=== PATIENT | female | born 1995 ===

== ENCOUNTER 2020-03-17 00:10 | Inpatient (IN) | payer MEDICAID ==
[2020-03-17] MEDS ORDERED: Sodium Chloride 0.9% 2.5 ML Syringe FLUSH PRN (01:06)
[2020-03-17] MEDS ORDERED: Ondansetron 4 MG/2 ML SDV IVPUSH PRN (01:06)
[2020-03-17] MEDS ORDERED: Tranexamic Acid 1,000 MG in Sodium Chloride 0.9% 100 ML IV PRN (01:06)
[2020-03-17] MEDS ORDERED: Sodium Chloride 0.9% 10 ML SDV IV PRN (01:06)
[2020-03-17] MEDS ORDERED: Lidocaine 1% 50 ML MDV INJECT PRN (01:06)
[2020-03-17] MEDS ORDERED: Methylergonovine 0.2 MG/1 ML Amp IM PRN (01:06)
[2020-03-17] MEDS ORDERED: Carboprost Tromethamine 250 MCG/1 ML Amp IM PRN (01:06)
[2020-03-17] MEDS ORDERED: Water For Irrigation,Sterile 1,000 ML Container IRR PRN (01:06)
[2020-03-17] MEDS ORDERED: Nalbuphine 10 MG/1 ML Vial IVPUSH PRN (01:06)
[2020-03-17] MEDS ORDERED: Misoprostol 200 MCG Tab PO PRN (01:06)
[2020-03-17] MEDS ORDERED: Sodium Chloride 0.9% 10 ML Syringe FLUSH PRN (01:06)
[2020-03-17] MEDS ORDERED: Terbutaline 1 MG/ML SDV SUBCUT PRN (01:11)
[2020-03-17] MEDS ORDERED: Oxytocin/0.9 % Sodium Chloride 30 UNIT/500 ML BAG IV SCH ×3 (01:15→14:15)
[2020-03-17] MEDS: Misoprostol 25 MCG (1/4 of 100 MCG) Tab PO PRN ×4 (01:24→23:08)
[2020-03-17] MEDS: Misoprostol 25 MCG (1/4 of 100 MCG) Tab VAG PRN ×4 (01:24→23:08)
--- NOTE | 2020-03-17 02:51 | PCM.LDHP ---
L&D History of Present Illness - General Date of Service: 03/17/20 Admit Problem/Dx: Patient Status Order with Admit Dx/Problem 03/17/20 01:06 Patient Status [ADT] Routine Admission Diagnosis/Problem Admission Diagnosis/Problem Source of Information: Patient History Limitations: Reports: No Limitations - History of Present Illness Introduction:: 24yo at 40w6d GA here for elective IOL. care unremarkable. Denies Ctx, VB. or LOF. Good FM labs: A+; Abs screen neg, Rubella immune. RPR nonreactive, HBsAg neg, HIV neg - Related Data Allergies/Adverse Reactions: Allergies Allergy/AdvReac Type Severity Reaction Status Date / Time No Known Allergies Allergy Verified 03/17/20 01:03 Home Medications: Home Meds Ferrous Sulfate [Iron] 325 mg PO 03/17/20 [History] Pnv #30/Iron Carb&Aspg/Fa/Om3 [OB Complete with DHA Softgel] 03/17/20 [History] Past Medical History HEENT History: Reports: None Cardiovascular History: Reports: None Respiratory History: Reports: None Gastrointestinal History: Reports: None Genitourinary History: Reports: None TWINE WINDER History: Reports: Musculoskeletal History: Reports: None Neurological History: Reports: None Psychiatric History: Reports: None Endocrine/Metabolic History: Reports: None Hematologic History: Reports: None Immunologic History: Reports: None Oncologic (Cancer) History: Reports: None Dermatologic History: Reports: None - Infectious Disease History Infectious Disease History: Reports: Chicken Pox - Past Surgical History Head Surgeries/Procedures: Reports: None HEENT Surgical History: Reports: None Cardiovascular Surgical History: Reports: None GI Surgical History: Reports: None Female Surgical History: Reports: None Endocrine Surgical History: Reports: None Neurological Surgical History: Reports: None Musculoskeletal Surgical History: Reports: None Oncologic Surgical History: Reports: None Dermatological Surgical History: Reports: None Social & Family History - Family History HEENT: Reports: None Cardiac: Reports: None Respiratory: Reports: None GI: Reports: None : Reports: None Musculoskeletal: Reports: None Neurological: Reports: None Psychiatric: Reports: None Endocrine/Metabolic: Reports: Diabetes, type II Hematologic: Reports: None Immunologic: Reports: None Dermatologic: Reports: None Oncologic: Reports: Ovarian - Tobacco Use Tobacco Use Status *Q: Never Tobacco User Second Hand Smoke Exposure: No - Caffeine Use Caffeine Use: Reports: Coffee - Recreational Drug Use Recreational Drug Use: No H&P Review of Systems - Review of Systems: Review Of Systems: See Below General: Reports: No Symptoms HEENT: Reports: No Symptoms Pulmonary: Reports: No Symptoms Cardiovascular: Reports: No Symptoms Gastrointestinal: Reports: No Symptoms Genitourinary: Reports: No Symptoms Musculoskeletal: Reports: No Symptoms Skin: Reports: No Symptoms Psychiatric: Reports: No Symptoms Neurological: Reports: No Symptoms Hematologic/Lymphatic: Reports: No Symptoms Immunologic: Reports: No Symptoms L&D Exam - Exam Exam: See Below - Vital Signs Weight: 93.497 kg - OB Specific Contraction Intensity: Mild Movement: Active Heart Tones: Present Heart Rate (FHR) Variability: Moderate (6-25 bmp) Presentation: Vertex Estimated Weight: 7 - Cristobal Score Cristobal Score Cervix Position: Posterior Cristobal Score Consistency: Medium Cristobal Score Effacement: 51-70% Cristobal Score Dilation: 1-2 cm Cristobal Score 's Station: -1 ,0 Cristobal Score Total: 6 - Exam General: Alert, Oriented Lungs: Normal Respiratory Effort Cardiovascular: Regular Rate GI/Abdominal Exam: Soft, Non-Tender Genitourinary: Normal external exam Extremities: Normal Inspection Psychiatric: Alert, Normal Affect, Normal Mood - Patient Data Lab Results Last 24 hrs: Laboratory Results - last 24 hr 03/17/20 03/17/20 Range/Units 00:50 00:50 WBC 11.45 H (4.0-11.0) K/uL RBC 3.55 L (4.30-5.90) M/uL Hgb 10.4 L (12.0-16.0) g/dL Hct 32.4 L (36.0-46.0) % MCV 91.3 (80.0-98.0) fL MCH 29.3 (27.0-32.0) pg MCHC 32.1 (31.0-37.0) g/dL RDW Std Deviation 52.5 (28.0-62.0) fl RDW Coeff of Dave 16 H (11.0-15.0) % Plt Count 411 H (150-400) K/uL MPV 10.80 (7.40-12.00) fL Nucleated RBC % 0.0 /100WBC Nucleated RBCs # 0 K/uL Blood Type A POSITIVE Antibody Screen NEGATIVE Result Diagrams: 03/17/20 00:50 - Problem List (1) Term SNOMED Code(s): 80128431 ICD Code: Z34.90 - ENCNTR FOR SUPRVSN OF NORMAL , UNSP, UNSP TRIMESTER Status: Acute Current Visit: Yes (2) Elective induction of labor planned SNOMED Code(s): 662386329 ICD Code: RWQ3301 - Status: Acute Current Visit: Yes Problem List Initiated/Reviewed/Updated: Yes Orders Last 24hrs: Active Orders 24 hr Category Date Time Status Patient Status [ADT] Routine ADT 03/17/20 01:06 Active Bedrest Bathroom Privileges [RC] ASDIRECTED Care 03/17/20 01:11 Active May Shower [RC] ASDIRECTED Care 03/17/20 01:06 Active Notify Provider [RC] PRN Care 03/17/20 01:06 Active Notify Provider [RC] PRN Care 03/17/20 01:11 Active Notify Provider [RC] PRN Care 03/17/20 01:11 Active Notify Provider [RC] STAT Care 03/17/20 01:11 Active Up ad [place] [RC] ASDIRECTED Care 03/17/20 01:06 Active Vital Signs [RC] PER UNIT ROUTINE Care 03/17/20 01:06 Active Regular Diet [DIET] Diet 03/17/20 Breakfast Active RPR (SYPHILIS SERO) W/ RFLX [REF] Routine Lab 03/17/20 00:50 Received Butorphanol [Stadol] Med 03/17/20 01:06 Active 1 mg IVPUSH Q1H PRN Carboprost Tromethamine [Hemabate DS] Med 03/17/20 01:06 Active 250 mcg IM ASDIRECTED PRN Lactated Ringers [Ringers, Lactated] 1,000 ml Med 03/17/20 01:15 Active IV ASDIRECTED Lidocaine 1% [Xylocaine 1%] Med 03/17/20 01:06 Active 50 ml INJECT ONETIME PRN Methylergonovine [Methergine] Med 03/17/20 01:06 Active 0.2 mg IM ASDIRECTED PRN Nalbuphine [Nubain] Med 03/17/20 01:06 Active 10 mg IVPUSH Q1H PRN Ondansetron [Zofran] Med 03/17/20 01:06 Active 4 mg IVPUSH Q6H PRN Oxytocin/0.9 % Sodium Chloride [Oxytocin 30 Unit/500 ML Med 03/17/20 01:15 Active -NS] 30 unit in 500 ml IV TITRATE Oxytocin/0.9 % Sodium Chloride [Oxytocin 30 Unit/500 ML Med 03/17/20 01:15 Active -NS] 30 unit in 500 ml IV TITRATE Sodium Chloride 0.9% [Normal Saline] Med 03/17/20 01:06 Active 10 ml IV ASDIRECTED PRN Sodium Chloride 0.9% [Saline Flush] Med 03/17/20 01:06 Active 10 ml FLUSH ASDIRECTED PRN Sodium Chloride 0.9% [Saline Flush] Med 03/17/20 01:06 Active 2.5 ml FLUSH ASDIRECTED PRN Terbutaline [Brethine] Med 03/17/20 01:11 Active 0.25 mg SUBCUT ASDIRECTED PRN Tranexamic Acid [Cyklokapron] 1,000 mg Med 03/17/20 01:06 Active Sodium Chloride 0.9% [Normal Saline] 100 ml IV ONETIME Water For Irrigation,Sterile [Sterile Water for Med 03/17/20 01:06 Active Irrigation] 1,000 ml IRR ASDIRECTED PRN miSOPROStoL [Cytotec] Med 03/17/20 01:06 Active 200 mcg PO ONETIME PRN miSOPROStoL [Cytotec] Med 03/17/20 01:11 Active 25 mcg PO Q4H PRN miSOPROStoL [Cytotec] Med 03/17/20 01:11 Active 25 mcg VAG Q4H PRN Scalp Electrode [WOMSER] Per Unit Routine Oth 03/17/20 01:06 Ordered Medication Administration Instruction [OM.PC] Q3H Oth 03/17/20 01:15 Ordered Peripheral IV Insertion Adult [OM.PC] Routine Oth 03/17/20 01:06 Ordered Resuscitation Status Routine Resus Stat 03/17/20 01:06 Ordered Medication Orders Butorphanol Tartrate (Stadol) 1 mg IVPUSH Q1H PRN PRN Reason: Pain Carboprost Tromethamine (Hemabate Ds) 250 mcg IM ASDIRECTED PRN PRN Reason: Post Hemorrhage Oxytocin/Sodium Chloride (Oxytocin 30 Unit/500 Ml-Ns) 30 unit in 500 mls @ 999 mls/hr IV TITRATE FRAN Tranexamic Acid 1,000 mg/ (Sodium Chloride) 110 mls @ 660 mls/hr IV ONETIME PRN PRN Reason: Bleeding Lactated Ringer's (Ringers, Lactated) 1,000 mls @ 150 mls/hr IV ASDIRECTED FRAN Oxytocin/Sodium Chloride (Oxytocin 30 Unit/500 Ml-Ns) 30 unit in 500 mls @ 2 mls/hr IV TITRATE FRAN; Protocol Lidocaine HCl (Xylocaine 1%) 50 ml INJECT ONETIME PRN PRN Reason: Laceration repair Methylergonovine Maleate (Methergine) 0.2 mg IM ASDIRECTED PRN PRN Reason: Post Hemorrhage Misoprostol (Cytotec) 200 mcg PO ONETIME PRN PRN Reason: Post Hemorrhage Misoprostol (Cytotec) 25 mcg VAG Q4H PRN PRN Reason: Cervical Ripening Last Admin: 03/17/20 01:24 Dose: 25 mcg Documented by: YULISA Misoprostol (Cytotec) 25 mcg PO Q4H PRN PRN Reason: Cervical Ripening Last Admin: 03/17/20 01:24 Dose: 25 mcg Documented by: YULISA Nalbuphine HCl (Nubain) 10 mg IVPUSH Q1H PRN PRN Reason: Pain (severe 7-10) Ondansetron HCl (Zofran) 4 mg IVPUSH Q6H PRN PRN Reason: Nausea/Vomiting Sodium Chloride (Saline Flush) 10 ml FLUSH ASDIRECTED PRN PRN Reason: Keep Vein Open Sodium Chloride (Saline Flush) 2.5 ml FLUSH ASDIRECTED PRN PRN Reason: Keep Vein Open Sodium Chloride (Normal Saline) 10 ml IV ASDIRECTED PRN PRN Reason: IV Use Sterile Water (Sterile Water For Irrigation) 1,000 ml IRR ASDIRECTED PRN PRN Reason: delivery Terbutaline Sulfate (Brethine) 0.25 mg SUBCUT ASDIRECTED PRN PRN Reason: Tacysystole Assessment/Plan Comment:: 24yo here for elective IOL. Reactive strip. Cristobal score 6 Will proceed with cytotec then pitocin PRN. Risks and benefits discussed with patient, including off label used of cytotec. Patient agreeable to the plan. Epidural PRN
[2020-03-17] MEDS: Lactated Ringers 1,000 ML IV SCH ×3 (04:18→19:27)
[2020-03-17] MEDS ORDERED: Oxytocin/0.9 % Sodium Chloride 30 UNIT/500 ML BAG ONE (08:49)
[2020-03-18] MEDS: Butorphanol 1 MG/ML SDV IVPUSH PRN ×2 (00:19→04:53)
[2020-03-18] MEDS: Lactated Ringers 1,000 ML IV SCH ×5 (01:46→14:31)
[2020-03-18] MEDS ORDERED: fentaNYL 100 MCG/2 ML SDV ONE ×2 (07:13→16:20)
[2020-03-18] MEDS ORDERED: Ropivacaine HCl/PF 100 ML ONE ×2 (07:13→16:20)
--- NOTE | 2020-03-18 07:32 | PCM.PREANE ---
Preanesthetic Assessment - Anesthesia/Transfusion/Family Hx Anesthesia History: No Prior Anesthesia Family History of Anesthesia Reaction: No Transfusion History: No Prior Transfusion(s) Type of Transfusion Reactions: Reports: Unknown - Physical Assessment NPO Status Date: 03/18/20 NPO Status Time: 00:05 Height: 1.57 m Weight: 93.497 kg ASA Class: 2 - Lab Values: Laboratory Last Values WBC 11.45 K/uL (4.0-11.0) H 03/17/20 00:50 RBC 3.55 M/uL (4.30-5.90) L 03/17/20 00:50 Hgb 10.4 g/dL (12.0-16.0) L 03/17/20 00:50 Hct 32.4 % (36.0-46.0) L 03/17/20 00:50 MCV 91.3 fL (80.0-98.0) 03/17/20 00:50 MCH 29.3 pg (27.0-32.0) 03/17/20 00:50 MCHC 32.1 g/dL (31.0-37.0) 03/17/20 00:50 RDW Std Deviation 52.5 fl (28.0-62.0) 03/17/20 00:50 RDW Coeff of Dave 16 % (11.0-15.0) H 03/17/20 00:50 Plt Count 411 K/uL (150-400) H 03/17/20 00:50 MPV 10.80 fL (7.40-12.00) 03/17/20 00:50 Nucleated RBC % 0.0 /100WBC 03/17/20 00:50 Nucleated RBCs # 0 K/uL 03/17/20 00:50 Membrane Rupture POSITIVE 03/18/20 00:30 Blood Type A POSITIVE 03/17/20 00:50 Antibody Screen NEGATIVE 03/17/20 00:50 - Allergies Allergies/Adverse Reactions: Allergies Allergy/AdvReac Type Severity Reaction Status Date / Time No Known Allergies Allergy Verified 03/17/20 01:03 - Acknowledgements Anesthesia Type Planned: Epidural Pt an Appropriate Candidate for the Planned Anesthesia: Yes Alternatives and Risks of Anesthesia Discussed w Pt/Guardian: Yes Pt/Guardian Understands and Agrees with Anesthesia Plan: Yes PreAnesthesia Questionnaire HEENT History: Reports: None Cardiovascular History: Reports: None Respiratory History: Reports: None Gastrointestinal History: Reports: None Genitourinary History: Reports: None [employer]Y History: Reports: Musculoskeletal History: Reports: None Neurological History: Reports: None Psychiatric History: Reports: None Endocrine/Metabolic History: Reports: None Hematologic History: Reports: None Immunologic History: Reports: None Oncologic (Cancer) History: Reports: None Dermatologic History: Reports: None - Infectious Disease History Infectious Disease History: Reports: Chicken Pox - Past Surgical History Head Surgeries/Procedures: Reports: None HEENT Surgical History: Reports: None Cardiovascular Surgical History: Reports: None GI Surgical History: Reports: None Female Surgical History: Reports: None Endocrine Surgical History: Reports: None Neurological Surgical History: Reports: None Musculoskeletal Surgical History: Reports: None Oncologic Surgical History: Reports: None Dermatological Surgical History: Reports: None - SUBSTANCE USE Tobacco Use Status *Q: Never Tobacco User Second Hand Smoke Exposure: No Recreational Drug Use History: No - HOME MEDS Home Medications: Home Meds Ferrous Sulfate [Iron] 325 mg PO 03/17/20 [History] Pnv #30/Iron Carb&Aspg/Fa/Om3 [OB Complete with DHA Softgel] 03/17/20 [History] - CURRENT (IN HOUSE) MEDS Current Meds: Current Medications Butorphanol Tartrate (Stadol) 1 mg IVPUSH Q1H PRN PRN Reason: Pain Last Admin: 03/18/20 04:53 Dose: 1 mg Documented by: Carboprost Tromethamine (Hemabate Ds) 250 mcg IM ASDIRECTED PRN PRN Reason: Post Hemorrhage Oxytocin/Sodium Chloride (Oxytocin 30 Unit/500 Ml-Ns) 30 unit in 500 mls @ 999 mls/hr IV TITRATE FRAN Tranexamic Acid 1,000 mg/ (Sodium Chloride) 110 mls @ 660 mls/hr IV ONETIME PRN PRN Reason: Bleeding Lactated Ringer's (Ringers, Lactated) 1,000 mls @ 150 mls/hr IV ASDIRECTED FRAN Last Admin: 03/18/20 07:04 Dose: 999 mls/hr Documented by: Oxytocin/Sodium Chloride (Oxytocin 30 Unit/500 Ml-Ns) 30 unit in 500 mls @ 2 mls/hr IV TITRATE FRAN; Protocol Last Titration: 03/18/20 04:17 Dose: 10 munits/min, 10 mls/hr Documented by: Oxytocin/Sodium Chloride (Oxytocin 30 Unit/500 Ml-Ns) 30 unit in 500 mls @ 2 mls/hr IV TITRATE FRAN; Protocol Lidocaine HCl (Xylocaine 1%) 50 ml INJECT ONETIME PRN PRN Reason: Laceration repair Methylergonovine Maleate (Methergine) 0.2 mg IM ASDIRECTED PRN PRN Reason: Post Hemorrhage Misoprostol (Cytotec) 200 mcg PO ONETIME PRN PRN Reason: Post Hemorrhage Misoprostol (Cytotec) 25 mcg VAG Q4H PRN PRN Reason: Cervical Ripening Last Admin: 03/17/20 09:37 Dose: 25 mcg Documented by: Misoprostol (Cytotec) 25 mcg PO Q4H PRN PRN Reason: Cervical Ripening Last Admin: 03/17/20 09:37 Dose: 25 mcg Documented by: Nalbuphine HCl (Nubain) 10 mg IVPUSH Q1H PRN PRN Reason: Pain (severe 7-10) Ondansetron HCl (Zofran) 4 mg IVPUSH Q6H PRN PRN Reason: Nausea/Vomiting Sodium Chloride (Saline Flush) 10 ml FLUSH ASDIRECTED PRN PRN Reason: Keep Vein Open Sodium Chloride (Saline Flush) 2.5 ml FLUSH ASDIRECTED PRN PRN Reason: Keep Vein Open Sodium Chloride (Normal Saline) 10 ml IV ASDIRECTED PRN PRN Reason: IV Use Sterile Water (Sterile Water For Irrigation) 1,000 ml IRR ASDIRECTED PRN PRN Reason: delivery Terbutaline Sulfate (Brethine) 0.25 mg SUBCUT ASDIRECTED PRN PRN Reason: Tacysystole Discontinued Medications Fentanyl (Sublimaze) Confirm Administered Dose 100 mcg .ROUTE .STK-MED ONE Stop: 03/18/20 07:14 Oxytocin/Sodium Chloride (Oxytocin 30 Unit/500 Ml-Ns) Confirm Administered Dose 30 unit in 500 mls @ as directed .ROUTE .STK-MED ONE Stop: 03/17/20 08:50 Last Admin: 03/18/20 03:44 Dose: Not Given Documented by: Ropivacaine (Naropin 0.2%) Confirm Administered Dose 100 mls @ as directed .ROUTE .STK-MED ONE Stop: 03/18/20 07:14
--- NOTE | 2020-03-18 07:35 | PCM.PRNOTE ---
- Free Text/Narrative Note: Anes Note Patient requests epidural for L&D. Sitting position, level L3-L4 midline approach. Chloraprep scrub to lumbar area. Sterile fenestrated drape applied. Epidural space easily achieved single attempt with ease using VIVIANA technique. VIVIANA at 4 cm. Cath threaded 5 cm with ease, Cath secured at skin using steril clear adhesive dressing. Test 0715 3 cc 1.5% lido with epi negative. 0718 Load 10 cc 0.2% ropivicaine iwth 1 mcg cc fentanyl in slow divided doses. 0725 Pump started wtih 90 cc same solution. Rate is 8 cc hr with 6 cc q 20 min prn bolus. Miguel well. Time with patietlibertad [id number] Jonah Garcia FIELD COORDINATOR
--- NOTE | 2020-03-18 10:10 | PCM.PNLD ---
Labor Progress Note - VS & Meds Vital Signs: VSS, afebrile. See flowsheet. Active Medications: Current Medications Butorphanol Tartrate (Stadol) 1 mg IVPUSH Q1H PRN PRN Reason: Pain Last Admin: 03/18/20 04:53 Dose: 1 mg Documented by: Carboprost Tromethamine (Hemabate Ds) 250 mcg IM ASDIRECTED PRN PRN Reason: Post Hemorrhage Oxytocin/Sodium Chloride (Oxytocin 30 Unit/500 Ml-Ns) 30 unit in 500 mls @ 999 mls/hr IV TITRATE FRAN Tranexamic Acid 1,000 mg/ (Sodium Chloride) 110 mls @ 660 mls/hr IV ONETIME PRN PRN Reason: Bleeding Lactated Ringer's (Ringers, Lactated) 1,000 mls @ 150 mls/hr IV ASDIRECTED FRAN Last Admin: 03/18/20 08:13 Dose: 150 mls/hr Documented by: Oxytocin/Sodium Chloride (Oxytocin 30 Unit/500 Ml-Ns) 30 unit in 500 mls @ 2 mls/hr IV TITRATE FRAN; Protocol Last Titration: 03/18/20 09:51 Dose: 14 munits/min, 14 mls/hr Documented by: Oxytocin/Sodium Chloride (Oxytocin 30 Unit/500 Ml-Ns) 30 unit in 500 mls @ 2 mls/hr IV TITRATE FRAN; Protocol Lidocaine HCl (Xylocaine 1%) 50 ml INJECT ONETIME PRN PRN Reason: Laceration repair Methylergonovine Maleate (Methergine) 0.2 mg IM ASDIRECTED PRN PRN Reason: Post Hemorrhage Misoprostol (Cytotec) 200 mcg PO ONETIME PRN PRN Reason: Post Hemorrhage Misoprostol (Cytotec) 25 mcg VAG Q4H PRN PRN Reason: Cervical Ripening Last Admin: 03/17/20 09:37 Dose: 25 mcg Documented by: Misoprostol (Cytotec) 25 mcg PO Q4H PRN PRN Reason: Cervical Ripening Last Admin: 03/17/20 09:37 Dose: 25 mcg Documented by: Nalbuphine HCl (Nubain) 10 mg IVPUSH Q1H PRN PRN Reason: Pain (severe 7-10) Ondansetron HCl (Zofran) 4 mg IVPUSH Q6H PRN PRN Reason: Nausea/Vomiting Sodium Chloride (Saline Flush) 10 ml FLUSH ASDIRECTED PRN PRN Reason: Keep Vein Open Sodium Chloride (Saline Flush) 2.5 ml FLUSH ASDIRECTED PRN PRN Reason: Keep Vein Open Sodium Chloride (Normal Saline) 10 ml IV ASDIRECTED PRN PRN Reason: IV Use Sterile Water (Sterile Water For Irrigation) 1,000 ml IRR ASDIRECTED PRN PRN Reason: delivery Terbutaline Sulfate (Brethine) 0.25 mg SUBCUT ASDIRECTED PRN PRN Reason: Tacysystole Discontinued Medications Fentanyl (Sublimaze) Confirm Administered Dose 100 mcg .ROUTE .[employer] ONE Stop: 03/18/20 07:14 Oxytocin/Sodium Chloride (Oxytocin 30 Unit/500 Ml-Ns) Confirm Administered Dose 30 unit in 500 mls @ as directed .ROUTE .[place] ONE Stop: 03/17/20 08:50 Last Admin: 03/18/20 03:44 Dose: Not Given Documented by: Ropivacaine (Naropin 0.2%) Confirm Administered Dose 100 mls @ as directed .ROUTE .[place] ONE Stop: 03/18/20 07:14 - Uterine Contractions Uterine Monitoring Mode: External [place] Contraction Frequency (min): 3 Contraction Duration (sec): 50-60 Contraction Intensity: Mild to Moderate Uterine Resting Tone: Soft - Monitoring Monitor Mode: External Ultrasound Heart Rate (FHR) Baseline: 130 Heart Rate (FHR) Variability: Moderate (6-25 bmp) Accelerations: Present, 15x15 Decelerations: Variable Strip Review: Category II - Vaginal Exam Dilation (cm): 5 Effacement (Percent): 90 Station: -1 Cervical Position: Midposition - Labor Progress (Free Text) Labor Progress: Jannet is a 24 yo at 41+0 weeks gestation (ELIJAH 03/11/2020) admitted for IOL 1 day ago, spontaneously sarai every 2-3 minutes, mild to moderate contractions. Reports adequate movement. BLE epidural in place, adequate analgesia. Denies pain, LOF and jael vaginal bleeding at this time. A pos, An screen neg, RI, GBS neg. Pertinent medical history includes: obesity, anemia. NKDA. Medications: PNV, ferrous sulfate 325 mg once daily. Pitocin a ugmentation temporarily discontinued since last night, contractions every 2-3 min lasting 50-60 seconds, mild to moderate to palpation, soft resting tone. FHR 130s, moderate variability, + accels, occasional variable decels, Cat II. LR bolus in progress s/p epidural placement. SVE 5/90/-1, membranes intact. Continue with POC for IOL in anticipation of . Continue intrauterine resuscitation as needed. Expectant management, plan to reassess cervical dilation ~[address] Valenzuela notified and agreeable with POC.
[2020-03-18] MEDS ORDERED: Lidocaine 2% with EPINEPHrine 1:200,000 20 ML SDV ONE (11:49)
--- NOTE | 2020-03-18 12:55 | PCM.SN.2 ---
- Free Text/Narrative Note: Jannet is a 24 yo at 41+0 wks gestation. IUPC, FSE placed this am due to difficult tracings due to body habitus and lack of progression. Pitocin restarted this am, titrated to 12 milliunits/min, prolonged deep deceleration noted x 8 minutes upon initiation of amnioinfusion of warmed NS x 2 minutes for recurrent variable decelerations. Michelle Mckeon CNM en route from office. Dr. Valenzuela immediately notified, en route. Suad Ayon CNM at bedside, SVE 6-7/90/-1, caput noted. Intrauterine resuscitation completed, FHR recovered to 110. Uterine contractions noted to be every 3-4 minutes at that time. Amnioinfusion then restarted with subsequent 1 minute deep variable, discontinued, not restarted again. Reactive NST obtained, pitocin re-started ~1 hour later at 2 milliunits/min, plan to titrate up by 1 milliunit/min every 20 minutes. Continue intrauterine resuscitation per orders. Dr. Valenzuela agreeable with POC.
--- NOTE | 2020-03-18 16:39 | PCM.PRNOTE ---
- Free Text/Narrative Note: Anes Note Epidural infusion is complete. A new bag of 100 cc 0.2% ropivicainewith 1 mcg cc fentanyl added was placed. Rate is 8 cc hr with 6 cc q 20 min prn bolus. Patient reports excellent analgesia. Jonah Garcia ADJUNCT ENGLISH INSTRUCTOR Time with patient [id number]
--- NOTE | 2020-03-18 19:48 | PCM.DEL ---
L & D Note - General Info Date of Service: 03/18/20 Mother's Due Date: 03/11/20 - Delivery Note Labor: Augmented by Oxytocin, Induced by Oxytocin Cervical Ripening Method: Misoprostil Delivery Outcome: Livebirth Infant Delivery Method: Spontaneous Vaginal Delivery-Single Infant Delivery Mode: Spontaneous Presentation: Right Occiput Anterior (SUSAN) Nuchal Cord: Present (Nuchal x1, somersaulted through) Anesthesia Type: Epidural Amniotic Fluid Description: Clear Episiotomy Type: None Laceration: 1st Degree Suture type: Vicryl Suture size: 3-0 Placenta: Spontaneous Cord: 3 Vessels Estimated Blood Loss: 450 Resuscitation Needed: Yes [place]: Suctioned, Bulb Syringe, Cathether, Stimulated, Warmed, [place] Used Provider: Marely Rae Score 1 min: 4 Score 5 min: 8 Second Stage Interventions: Reports: Encouragement Given, Pushing Effectively, Pushing, Stirrups/Leg Supports Delivery Comments (Free Text/Narrative):: Jannet is a 24 yo S/P of post-dates, viable NBM at 41+0 weeks gestation (ELIJAH 03/11/2020) following elective IOL at 40+6 weeks. A pos, Ab screen neg, RI, GBS neg. BLE epidural in place, adequate analgesia. Suspected SROM at 2100 1 day ago confirmed with Amnisure collected and positive at 0030 today; suspected SROM >18 hrs. Scant to small clear, non-odorous fluid noted with pushing. IUPC and FSE in place with second stage pushing and removed just prior to imminent . Recurrent deep decelerations noted in labor with prolonged pitocin augmentation and with pushing. Dr. Valenzuela notified and available on unit. Home Health Care Coordinator notified and on unit. head spontaneously SUSAN, nuchal x1 noted, somersaulted through with next push. Lack of tone and respiratory effort noted upon , umbilical cord clamped x2, cut by CNM. NBM brought to warmer for assessment and resuscitation. Pitocin IV bolus commenced for active third stage management. Large vaginal bleeding noted with placental release. 0.2 mg IM methergine administered left anterior thigh for active third stage management due to prolonged pitocin administration. Placenta birthed spontaneously intact, Vel[place], 3VC ~ 8-9 min S/P NBM. Uterus firm, U-1, small rubra lochia, no clots. Small left periurethral skin tear noted, hemostatic not repaired. 1st degree perineal laceration noted, repaired with 3.[address], hemostatic, edematous. EBL 450 ml. Apgars 4/8. Weight 7 lb 8 oz (3410 g) Patient resting comfortably in bed, VSS. Tmax 99.5 F. Induction Criteria - Cristobal Score Cristobal Score Dilation: 1-2 cm Cristobal Score Effacement: 60-70% Cristobal Score Infant's Station: -1 ,0 Cristobal Score Consistency: Soft Cristobal Score Cervix Position: Midposition Cristobal Score Total: 8 Cristobal Score Presenting Part: Reports: Cephalic - Induction Gestational Age >/= 39 wks: Yes Estimated Pelvis: Reports: Adequate - General Info Date of Service: 03/18/20 Admission Dx/Problem (Free Text): Patient Status Order with Admit Dx/Problem 03/17/20 01:06 Patient Status [ADT] Routine Admission Diagnosis/Problem Admission Diagnosis/Problem Functional Status: Reports: Pain Controlled, Tolerating Diet - Review of Systems General: Reports: No Symptoms HEENT: Reports: No Symptoms Pulmonary: Reports: No Symptoms Cardiovascular: Reports: No Symptoms Gastrointestinal: Reports: No Symptoms Genitourinary: Reports: No Symptoms Musculoskeletal: Reports: No Symptoms Skin: Reports: No Symptoms Neurological: Reports: No Symptoms Psychiatric: Reports: No Symptoms - Patient Data Vitals - Most Recent: VSS, afebrile. Tmax 99.5F. See flowsheet. Weight - Most Recent: 206 lb 2 oz I&O - Last 24 Hours: Intake & Output 03/18/20 03/18/20 03/18/20 06:59 14:59 22:59 Output Total 950 Balance -950 Lab Results Last 24 Hours: Laboratory Results - last 24 hr 03/18/20 Range/Units 00:30 Membrane Rupture POSITIVE Med Orders - Current: Current Medications Butorphanol Tartrate (Stadol) 1 mg IVPUSH Q1H PRN PRN Reason: Pain Last Admin: 03/18/20 04:53 Dose: 1 mg Documented by: Carboprost Tromethamine (Hemabate Ds) 250 mcg IM ASDIRECTED PRN PRN Reason: Post Hemorrhage Oxytocin/Sodium Chloride (Oxytocin 30 Unit/500 Ml-Ns) 30 unit in 500 mls @ 999 mls/hr IV TITRATE FRAN Tranexamic Acid 1,000 mg/ (Sodium Chloride) 110 mls @ 660 mls/hr IV ONETIME PRN PRN Reason: Bleeding Lactated Ringer's (Ringers, Lactated) 1,000 mls @ 150 mls/hr IV ASDIRECTED FRAN Last Admin: 03/18/20 14:31 Dose: 999 mls/hr Documented by: Oxytocin/Sodium Chloride (Oxytocin 30 Unit/500 Ml-Ns) 30 unit in 500 mls @ 2 mls/hr IV TITRATE FRAN; Protocol Last Titration: 03/18/20 15:15 Dose: 6 munits/min, 6 mls/hr Documented by: Oxytocin/Sodium Chloride (Oxytocin 30 Unit/500 Ml-Ns) 30 unit in 500 mls @ 2 mls/hr IV TITRATE [facility]; Protocol Lidocaine HCl (Xylocaine 1%) 50 ml INJECT ONETIME PRN PRN Reason: Laceration repair Methylergonovine Maleate (Methergine) 0.2 mg IM ASDIRECTED PRN PRN Reason: Post Hemorrhage Last Admin: 03/18/20 19:13 Dose: 0.2 mg Documented by: Misoprostol (Cytotec) 200 mcg PO ONETIME PRN PRN Reason: Post Hemorrhage Misoprostol (Cytotec) 25 mcg VAG Q4H PRN PRN Reason: Cervical Ripening Last Admin: 03/17/20 09:37 Dose: 25 mcg Documented by: Misoprostol (Cytotec) 25 mcg PO Q4H PRN PRN Reason: Cervical Ripening Last Admin: 03/17/20 09:37 Dose: 25 mcg Documented by: Nalbuphine HCl (Nubain) 10 mg IVPUSH Q1H PRN PRN Reason: Pain (severe 7-10) Ondansetron HCl (Zofran) 4 mg IVPUSH Q6H PRN PRN Reason: Nausea/Vomiting Sodium Chloride (Saline Flush) 10 ml FLUSH ASDIRECTED PRN PRN Reason: Keep Vein Open Sodium Chloride (Saline Flush) 2.5 ml FLUSH ASDIRECTED PRN PRN Reason: Keep Vein Open Sodium Chloride (Normal Saline) 10 ml IV ASDIRECTED PRN PRN Reason: IV Use Sterile Water (Sterile Water For Irrigation) 1,000 ml IRR ASDIRECTED PRN PRN Reason: delivery Terbutaline Sulfate (Brethine) 0.25 mg SUBCUT ASDIRECTED PRN PRN Reason: Tacysystole Discontinued Medications Fentanyl (Sublimaze) Confirm Administered Dose 100 mcg .ROUTE .ST-MED ONE Stop: 03/18/20 07:14 Fentanyl (Sublimaze) Confirm Administered Dose 100 mcg .ROUTE .ST-MED ONE Stop: 03/18/20 16:21 Oxytocin/Sodium Chloride (Oxytocin 30 Unit/500 Ml-Ns) Confirm Administered Dose 30 unit in 500 mls @ as directed .ROUTE .[facility]-MED ONE Stop: 03/17/20 08:50 Last Admin: 03/18/20 03:44 Dose: Not Given Documented by: Ropivacaine (Naropin 0.2%) Confirm Administered Dose 100 mls @ as directed .ROUTE .[facility]-MED ONE Stop: 03/18/20 07:14 Ropivacaine (Naropin 0.2%) Confirm Administered Dose 100 mls @ as directed .ROUTE .[facility]-MED ONE Stop: 03/18/20 16:21 Lidocaine/Epinephrine (Xylocaine-Mpf 2%-Epi 1:200,000) Confirm Administered Dose 20 ml .ROUTE .[facility]-MED ONE Stop: 03/18/20 11:50 - Exam General: Alert, Oriented, Cooperative, No Acute Distress HEENT: Pupils Equal, Mucous Membr. Moist/[place] Neck: Supple Lungs: Clear to Auscultation, Normal Respiratory Effort Cardiovascular: Regular Rate, Regular Rhythm GI/Abdominal Exam: Normal Bowel Sounds, Soft, Non-Tender, No Organomegaly, No Distention (Female) Exam: Normal External Exam, Enlarged Uterus ( uterus, firm U-1), Vaginal Bleeding (Small rubra lochia, no clots.), Vaginal Tears (1st degree perineal laceration repaired, hemostatic. Small left periurethral skin tear noted, hemostatic not repaired. Bilateral labial edema.) Back Exam: Normal Inspection, Full Range of Motion Extremities: Normal Inspection, Normal Range of Motion, Non-Tender, No Pedal Edema, Normal Capillary Refill Skin: Warm, Dry, Intact Wound/Incisions: No Drainage (1st degree perineal laceration repaired, hemostatic.) Neurological: No New Focal Deficit (BLE epidural analgesia) Psy/Mental Status: Alert, Normal Affect, Normal Mood - Problem List & Annotations (1) (spontaneous vaginal delivery) SNOMED Code(s): 546685737 Code(s): O80 - ENCOUNTER FOR FULL-TERM UNCOMPLICATED DELIVERY Status: Acute Priority: High Current Visit: Yes (2) Lactating mother SNOMED Code(s): 319580523, 452896157 Code(s): Z39.1 - ENCOUNTER FOR CARE AND EXAMINATION OF LACTATING MOTHER Status: Acute Priority: High Current Visit: Yes - Problem List Review Problem List Initiated/Reviewed/Updated: Yes - Plan Plan:: Jannet is a 24 yo immediately S/P of post-dates, viable NBM at 41+0 weeks gestation (ELIJAH 03/11/2020) following elective IOL at 40+6 weeks. D/C epidural now, may ambulate with assistance in 2-4 hours. [place] D/Cd ~1 hr prior to . If patient has not voided 4-6 hours , may I/O cath and notify provider. H/H in am. See new orders. Dr. Valenzuela notified and agreeable with POC.
[2020-03-18] MEDS ORDERED: Ibuprofen 400 MG Tab PO PRN (20:01)
[2020-03-18] MEDS ORDERED: Witch Hazel Medicated Pads 40/Jar TOP PRN (20:01)
[2020-03-18] MEDS ORDERED: Acetaminophen 500 MG Tab PO PRN ×2 (20:01)
[2020-03-18] MEDS ORDERED: Benzocaine/Menthol 20%-0.5% Spray 78 GM Cannister TOP PRN (20:01)
[2020-03-18] MEDS ORDERED: Bisacodyl 10 MG Supp RECTAL PRN (20:01)
[2020-03-18] MEDS ORDERED: oxyCODONE 5 MG Tab PO PRN (20:01)
[2020-03-18] MEDS ORDERED: Lanolin 100% Cream 7 GM Tube TOP PRN (20:01)
[2020-03-18] MEDS ORDERED: Ibuprofen 800 MG Tab PO PRN (20:01)
[2020-03-18] MEDS ORDERED: Iron Polysaccharides Complex 150 MG Cap PO SCH (21:00)
--- NOTE | 2020-03-19 07:30 | PCM48HPAN ---
Post Anesthesia Note - EVALUATION WITHIN 48HRS OF ANESTHETIC Vital Signs in Normal Range: Yes Patient Participated in Evaluation: Yes Respiratory Function Stable: Yes Airway Patent: Yes Cardiovascular Function Stable: Yes Hydration Status Stable: Yes Pain Control Satisfactory: Yes (Pain 4/10, satisfactory control per patient) Nausea and Vomiting Control Satisfactory: Yes (Denies nausea, taking PO well) Mental Status Recovered: Yes - COMMENTS/OBSERVATIONS Free Text/Narrative:: Pt has been ambulating well, reports full return of strength and sensation to BLE.
--- NOTE | 2020-03-19 10:49 | PCM.PNPP ---
- General Info Date of Service: 03/19/20 Admission Dx/Problem (Free Text): Patient Status Order with Admit Dx/Problem 03/17/20 01:06 Patient Status [ADT] Routine Admission Diagnosis/Problem Admission Diagnosis/Problem Jannet is a 24 yo PPD0 S/P to post-dates NB at 41+0 weeks gestation complicated by asymptomatic prolonged ROM, prolonged pitocin administration, and recurrent FHR decelerations. A pos, Ab screen neg RI, GBS neg. Patient has no complaints or concerns at this time except BLE edema. Patient is exclusively well, resting comfortably in bed with in bassinet at bedside. Patient reports she is eating, voiding, ambulating independently and without difficulty. Patient denies any problems or concerns at this time except mild-moderate intermittent vaginal discomfort, not medicated at this time. Patient reports small vaginal bleeding with no clots. Functional Status: Reports: Pain Controlled, Tolerating Diet, Ambulating, Urinating Pain Score: 0 - Review of Systems General: Reports: No Symptoms HEENT: Reports: No Symptoms Pulmonary: Reports: No Symptoms Cardiovascular: Reports: No Symptoms Gastrointestinal: Reports: No Symptoms Genitourinary: Reports: No Symptoms Musculoskeletal: Reports: No Symptoms Skin: Reports: No Symptoms Neurological: Reports: No Symptoms Psychiatric: Reports: No Symptoms - General Info Date of Service: 03/19/20 - Patient Data Vital Signs - Most Recent: Last Vital Signs Temp 97.8 F 03/19/20 08:24 Pulse 77 03/19/20 08:24 Resp 16 03/19/20 08:24 BP 115/74 03/19/20 08:24 Pulse Ox 99 03/19/20 08:24 Weight - Most Recent: 206 lb 2 oz I&O - Last 24 Hours: Intake & Output 03/18/20 03/19/20 03/19/20 22:59 06:59 14:59 Output Total 1400 Balance -1400 Lab Results - Last 24 Hours: Laboratory Results - last 24 hr 03/19/20 Range/Units 06:01 Hgb 9.6 L (12.0-16.0) g/dL Hct 30.2 L (36.0-46.0) % Med Orders - Current: Current Medications Acetaminophen (Tylenol Extra Strength) 500 mg PO Q4H PRN PRN Reason: Pain Acetaminophen (Tylenol Extra Strength) 1,000 mg PO Q4H PRN PRN Reason: Pain Benzocaine/Menthol (Dermoplast Pain Relief 20%-0.5% [place]) 78 gm TOP ASDIRECTED PRN PRN Reason: Perineal Comfort Measure Bisacodyl (Dulcolax) 10 mg RECTAL ONETIME PRN PRN Reason: Constipation Docusate Sodium (Colace) 100 mg PO BID [facility] Emollient Ointment (Lansinoh Hpa) 0 gm TOP ASDIRECTED PRN PRN Reason: Sore Nipples Ibuprofen (Motrin) 400 mg PO Q4H PRN PRN Reason: Pain Ibuprofen (Motrin) 800 mg PO Q6H PRN PRN Reason: Pain Oxycodone HCl (Oxycodone) 5 mg PO Q2H PRN PRN Reason: Pain Polysaccharide Iron Complex (Ferrex 150) 150 mg PO DAILY FRAN Witch Teresa (Tucks) 1 pad TOP ASDIRECTED PRN PRN Reason: comfort care Discontinued Medications Butorphanol Tartrate (Stadol) 1 mg IVPUSH Q1H PRN PRN Reason: Pain Last Admin: 03/18/20 04:53 Dose: 1 mg Documented by: Carboprost Tromethamine (Hemabate Ds) 250 mcg IM ASDIRECTED PRN PRN Reason: Post Hemorrhage Fentanyl (Sublimaze) Confirm Administered Dose 100 mcg .ROUTE .STK-MED ONE Stop: 03/18/20 07:14 Fentanyl (Sublimaze) Confirm Administered Dose 100 mcg .ROUTE .STK-MED ONE Stop: 03/18/20 16:21 Oxytocin/Sodium Chloride (Oxytocin 30 Unit/500 Ml-Ns) 30 unit in 500 mls @ 999 mls/hr IV TITRATE FRAN Tranexamic Acid 1,000 mg/ (Sodium Chloride) 110 mls @ 660 mls/hr IV ONETIME PRN PRN Reason: Bleeding Lactated Ringer's (Ringers, Lactated) 1,000 mls @ 150 mls/hr IV ASDIRECTED FRAN Last Admin: 03/18/20 14:31 Dose: 999 mls/hr Documented by: Oxytocin/Sodium Chloride (Oxytocin 30 Unit/500 Ml-Ns) 30 unit in 500 mls @ 2 mls/hr IV TITRATE FRAN; Protocol Last Titration: 03/18/20 15:15 Dose: 6 munits/min, 6 mls/hr Documented by: Oxytocin/Sodium Chloride (Oxytocin 30 Unit/500 Ml-Ns) Confirm Administered Dose 30 unit in 500 mls @ as directed .ROUTE .[facility] ONE Stop: 03/17/20 08:50 Last Admin: 03/18/20 03:44 Dose: Not Given Documented by: Oxytocin/Sodium Chloride (Oxytocin 30 Unit/500 Ml-Ns) 30 unit in 500 mls @ 2 mls/hr IV TITRATE FRAN; Protocol Ropivacaine (Naropin 0.2%) Confirm Administered Dose 100 mls @ as directed .ROUTE .[facility] ONE Stop: 03/18/20 07:14 Ropivacaine (Naropin 0.2%) Confirm Administered Dose 100 mls @ as directed .ROUTE .[facility] ONE Stop: 03/18/20 16:21 Lidocaine HCl (Xylocaine 1%) 50 ml INJECT ONETIME PRN PRN Reason: Laceration repair Lidocaine/Epinephrine (Xylocaine-Mpf 2%-Epi 1:200,000) Confirm Administered Dose 20 ml .ROUTE .[facility] ONE Stop: 03/18/20 11:50 Methylergonovine Maleate (Methergine) 0.2 mg IM ASDIRECTED PRN PRN Reason: Post Hemorrhage Last Admin: 03/18/20 19:13 Dose: 0.2 mg Documented by: Misoprostol (Cytotec) 200 mcg PO ONETIME PRN PRN Reason: Post Hemorrhage Misoprostol (Cytotec) 25 mcg VAG Q4H PRN PRN Reason: Cervical Ripening Last Admin: 03/17/20 09:37 Dose: 25 mcg Documented by: Misoprostol (Cytotec) 25 mcg PO Q4H PRN PRN Reason: Cervical Ripening Last Admin: 03/17/20 09:37 Dose: 25 mcg Documented by: Nalbuphine HCl (Nubain) 10 mg IVPUSH Q1H PRN PRN Reason: Pain (severe 7-10) Ondansetron HCl (Zofran) 4 mg IVPUSH Q6H PRN PRN Reason: Nausea/Vomiting Sodium Chloride (Saline Flush) 10 ml FLUSH ASDIRECTED PRN PRN Reason: Keep Vein Open Sodium Chloride (Saline Flush) 2.5 ml FLUSH ASDIRECTED PRN PRN Reason: Keep Vein Open Sodium Chloride (Normal Saline) 10 ml IV ASDIRECTED PRN PRN Reason: IV Use Sterile Water (Sterile Water For Irrigation) 1,000 ml IRR ASDIRECTED PRN PRN Reason: delivery Terbutaline Sulfate (Brethine) 0.25 mg SUBCUT ASDIRECTED PRN PRN Reason: Tacysystole - Interaction Disposition, : [place] at Bedside Infant Interaction: Not Interacting Infant Feeding: Breastfed Infant; Nursed Well, Continues to Breastfeed, Encouraged to Breastfeed Support Person: Significant Other - Recovery Exam Fundal Tone: Firm Fundal Level: 1 Fingerbreadths Above Umbilicus Fundal Placement: Midline Lochia Amount: Scant Lochia Color: Rubra/Red Perineum Description: Intact, Minimal Bruising/Swelling, Edematous Episiotomy/Laceration: Approximated Bladder Status: Voiding Urinary Elimination: Voided - Exam General: Alert, Oriented, Cooperative, No Acute Distress HEENT: Pupils Equal, Mucous Membr. Moist/[place] Neck: Supple Lungs: Clear to Auscultation, Normal Respiratory Effort Cardiovascular: Regular Rate, Regular Rhythm GI/Abdominal Exam: Normal Bowel Sounds, Soft, Non-Tender, No Organomegaly, No Distention Extremities: Normal Inspection, Normal Range of Motion, Non-Tender, No Pedal Edema, Normal Capillary Refill Skin: Warm, Dry, Intact Wound/Incisions: No Drainage Neurological: No New Focal Deficit Psy/Mental Status: Alert, Normal Affect, Normal Mood - Problem List & Annotations (1) (spontaneous vaginal delivery) SNOMED Code(s): 140675385 Code(s): O80 - ENCOUNTER FOR FULL-TERM UNCOMPLICATED DELIVERY Status: Acute Priority: High Current Visit: Yes (2) Lactating mother SNOMED Code(s): 956420696, 301726177 Code(s): Z39.1 - ENCOUNTER FOR CARE AND EXAMINATION OF LACTATING MOTHER Status: Acute Priority: High Current Visit: Yes - Problem List Review Problem List Initiated/Reviewed/Updated: Yes - My Orders Last 24 Hours: My Active Orders 03/18/20 Dinner Regular Diet [DIET] 03/18/20 20:01 Patient Status [ADT] Routine May Shower [RC] ASDIRECTED Up ad [place] [RC] ASDIRECTED Vital Signs [RC] PER UNIT ROUTINE Acetaminophen [Tylenol Extra Strength] 1,000 mg PO Q4H PRN Acetaminophen [Tylenol Extra Strength] 500 mg PO Q4H PRN Benzocaine/Menthol [Dermoplast Pain Relief 20%-0.5% [place]] 78 gm TOP ASDIRECTED PRN Ibuprofen [Motrin] 400 mg PO Q4H PRN Ibuprofen [Motrin] 800 mg PO Q6H PRN Lanolin [Lansinoh HPA] See Dose Instructions TOP ASDIRECTED PRN bisacodyL [Dulcolax] 10 mg RECTAL ONETIME PRN oxyCODONE 5 mg PO Q2H PRN witch Teresa [Tucks] 1 pad TOP ASDIRECTED PRN Assess Lochia [WOMSER] Per Unit Routine Assess Uterine Involution [WOMSER] Per Unit Routine Ice Therapy [OM.PC] Per Unit Routine Perineal Care [OM.PC] Per Unit Routine Peripheral IV Discontinue [OM.PC] Routine Sitz Bath [OM.PC] Per Unit Routine Resuscitation Status Routine 03/18/20 20:02 Cooling Warming Measures [RC] ASDIRECTED 03/18/20 21:00 Docusate Sodium [Colace] 100 mg PO BID Iron Polysaccharides Complex [Ferrex 150] 150 mg PO DAILY - Plan Plan:: Hemodynamically stable, afebrile. Continue to ambulate 3-5 times daily. Hgb 9.6; continue ferrous sulfate supplementation once daily, F/U as indicated. May use PO analgesia as ordered. Continue EBFing, eating, voiding, ambulating independently. Plan to D/C in am pending medical clearance. Dr. Valenzuela notified and agreeable with POC.
[2020-03-20] MEDS ORDERED: Docusate Sodium 100 MG Cap ONE (00:08)
[2020-03-20] MEDS: Docusate Sodium 100 MG Cap PO SCH ×2 (00:15→00:16)
--- NOTE | 2020-03-20 14:42 | PCM.DCSUM1 ---
Discharge Summary - Hospital Course Free Text/Narrative:: Jannet is a 24 yo G1 now P1 S/P at 41+0 weeks gestation (ELIJAH 03/11/2020) following elective IOL at 40+6 weeks for post-dates. A pos, Ab screen neg, RI, GBS neg. S/P uncomplicated vaginal delivery after SROM>18hrs. EBL 450 ml. Apgars 4/8. Weight 7 lb 8 oz (3410 g). care has been unremarkable. Diagnosis: Stroke: No - Discharge Data Discharge Date: 03/20/20 Discharge Disposition: Home, Self-Care 01 Condition: Good - Referral to Home Health Primary Care Physician: Rick Flannery MD - Discharge Diagnosis/Problem(s) (1) Term SNOMED Code(s): 44192403 ICD Code: Z34.90 - ENCNTR FOR SUPRVSN OF NORMAL , UNSP, UNSP TRIMESTER Status: Acute (2) Elective induction of labor planned SNOMED Code(s): 823820297 ICD Code: [id number] - Status: Acute (3) (spontaneous vaginal delivery) SNOMED Code(s): 118771813 ICD Code: O80 - ENCOUNTER FOR FULL-TERM UNCOMPLICATED DELIVERY Status: Acute Priority: High - Patient Instructions Diet: Usual Diet as Tolerated Activity: As Tolerated - Discharge Plan *PRESCRIPTION DRUG MONITORING PROGRAM REVIEWED*: Not Applicable *COPY OF PRESCRIPTION DRUG MONITORING REPORT IN PATIENT LEISA: Not Applicable Home Medications: Home Meds Ferrous Sulfate [Iron] 325 mg PO 03/17/20 [History] Pnv #30/Iron Carb&Aspg/Fa/Om3 [OB Complete with DHA Softgel] 03/17/20 [History] Patient Handouts: Baby Blues, Care After Vaginal Delivery Referrals: Michelle Gupta CNM [Mid-] - 04/30/20 1:00 pm - Discharge Summary/Plan Comment DC Time >30 min.: Yes Discharge Summary/Plan Comment: Patient ready to be discharge. Resume activities as tolerated - General Info Date of Service: 03/20/20 Admission Dx/Problem (Free Text: Patient Status Order with Admit Dx/Problem 03/17/20 01:06 Patient Status [ADT] Routine Admission Diagnosis/Problem Admission Diagnosis/Problem Jannet is a 24 yo PPD0 S/P to post-dates NBM at 41+0 weeks gestation complicated by asymptomatic prolonged ROM, prolonged pitocin administration, and recurrent FHR decelerations. A pos, Ab screen neg RI, GBS neg. Patient has no complaints or concerns at this time except BLE edema. Patient is exclusively well, resting comfortably in bed with in bassinet at bedside. Patient reports she is eating, voiding, ambulating independently and without difficulty. Patient denies any problems or concerns at this time except mild-moderate intermittent vaginal discomfort, not medicated at this time. Patient reports small vaginal bleeding with no clots. Subjective Update: course has been overall unremarkable. Patient is ready for discharge Functional Status: Reports: Pain Controlled - Review of Systems General: Reports: No Symptoms HEENT: Reports: No Symptoms Pulmonary: Reports: No Symptoms Cardiovascular: Reports: No Symptoms Gastrointestinal: Reports: No Symptoms Genitourinary: Reports: No Symptoms Musculoskeletal: Reports: No Symptoms Skin: Reports: No Symptoms Neurological: Reports: No Symptoms Psychiatric: Reports: No Symptoms - Patient Data Vitals - Most Recent: Last Vital Signs Temp 97.7 F 03/20/20 08:16 Pulse 52 L 03/20/20 08:16 Resp 16 03/20/20 08:16 BP 135/77 03/20/20 08:16 Pulse Ox 98 03/20/20 08:16 Weight - Most Recent: 93.497 kg Lab Results - Last 24 hrs: Laboratory Results - last 24 hr 03/17/20 Range/Units 00:50 RPR Non-Reac (Non-Reac) Med Orders - Current: Current Medications Acetaminophen (Tylenol Extra Strength) 500 mg PO Q4H PRN PRN Reason: Pain Acetaminophen (Tylenol Extra Strength) 1,000 mg PO Q4H PRN PRN Reason: Pain Benzocaine/Menthol (Dermoplast Pain Relief 20%-0.5% [place]) 78 gm TOP ASDIRECTED PRN PRN Reason: Perineal Comfort Measure Bisacodyl (Dulcolax) 10 mg RECTAL ONETIME PRN PRN Reason: Constipation Docusate Sodium (Colace) 100 mg PO BID FRAN Last Admin: 03/20/20 00:16 Dose: 100 mg Documented by: Emollient Ointment (Lansinoh Hpa) 0 gm TOP ASDIRECTED PRN PRN Reason: Sore Nipples Ibuprofen (Motrin) 400 mg PO Q4H PRN PRN Reason: Pain Ibuprofen (Motrin) 800 mg PO Q6H PRN PRN Reason: Pain Oxycodone HCl (Oxycodone) 5 mg PO Q2H PRN PRN Reason: Pain Polysaccharide Iron Complex (Ferrex 150) 150 mg PO DAILY [facility] Leonel Moore (Tucks) 1 pad TOP ASDIRECTED PRN PRN Reason: comfort care Discontinued Medications Butorphanol Tartrate (Stadol) 1 mg IVPUSH Q1H PRN PRN Reason: Pain Last Admin: 03/18/20 04:53 Dose: 1 mg Documented by: Carboprost Tromethamine (Hemabate Ds) 250 mcg IM ASDIRECTED PRN PRN Reason: Post Hemorrhage Docusate Sodium (Colace) Confirm Administered Dose 100 mg .ROUTE .STK-MED ONE Stop: 03/20/20 00:09 Fentanyl (Sublimaze) Confirm Administered Dose 100 mcg .ROUTE .STK-MED ONE Stop: 03/18/20 07:14 Fentanyl (Sublimaze) Confirm Administered Dose 100 mcg .ROUTE .STK-MED ONE Stop: 03/18/20 16:21 Oxytocin/Sodium Chloride (Oxytocin 30 Unit/500 Ml-Ns) 30 unit in 500 mls @ 999 mls/hr IV TITRATE FRAN Tranexamic Acid 1,000 mg/ (Sodium Chloride) 110 mls @ 660 mls/hr IV ONETIME PRN PRN Reason: Bleeding Lactated Ringer's (Ringers, Lactated) 1,000 mls @ 150 mls/hr IV ASDIRECTED FRAN Last Admin: 03/18/20 14:31 Dose: 999 mls/hr Documented by: Oxytocin/Sodium Chloride (Oxytocin 30 Unit/500 Ml-Ns) 30 unit in 500 mls @ 2 mls/hr IV TITRATE FRAN; Protocol Last Titration: 03/18/20 15:15 Dose: 6 munits/min, 6 mls/hr Documented by: Oxytocin/Sodium Chloride (Oxytocin 30 Unit/500 Ml-Ns) Confirm Administered Dose 30 unit in 500 mls @ as directed .ROUTE .STK-MED ONE Stop: 03/17/20 08:50 Last Admin: 03/18/20 03:44 Dose: Not Given Documented by: Oxytocin/Sodium Chloride (Oxytocin 30 Unit/500 Ml-Ns) 30 unit in 500 mls @ 2 mls/hr IV TITRATE FRAN; Protocol Ropivacaine (Naropin 0.2%) Confirm Administered Dose 100 mls @ as directed .ROUTE .TickTickTickets-MED ONE Stop: 03/18/20 07:14 Ropivacaine (Naropin 0.2%) Confirm Administered Dose 100 mls @ as directed .ROUTE .Opax ONE Stop: 03/18/20 16:21 Lidocaine HCl (Xylocaine 1%) 50 ml INJECT ONETIME PRN PRN Reason: Laceration repair Lidocaine/Epinephrine (Xylocaine-Mpf 2%-Epi 1:200,000) Confirm Administered Dose 20 ml .ROUTE .Opax ONE Stop: 03/18/20 11:50 Methylergonovine Maleate (Methergine) 0.2 mg IM ASDIRECTED PRN PRN Reason: Post Hemorrhage Last Admin: 03/18/20 19:13 Dose: 0.2 mg Documented by: Misoprostol (Cytotec) 200 mcg PO ONETIME PRN PRN Reason: Post Hemorrhage Misoprostol (Cytotec) 25 mcg VAG Q4H PRN PRN Reason: Cervical Ripening Last Admin: 03/17/20 09:37 Dose: 25 mcg Documented by: Misoprostol (Cytotec) 25 mcg PO Q4H PRN PRN Reason: Cervical Ripening Last Admin: 03/17/20 09:37 Dose: 25 mcg Documented by: Nalbuphine HCl (Nubain) 10 mg IVPUSH Q1H PRN PRN Reason: Pain (severe 7-10) Ondansetron HCl (Zofran) 4 mg IVPUSH Q6H PRN PRN Reason: Nausea/Vomiting Sodium Chloride (Saline Flush) 10 ml FLUSH ASDIRECTED PRN PRN Reason: Keep Vein Open Sodium Chloride (Saline Flush) 2.5 ml FLUSH ASDIRECTED PRN PRN Reason: Keep Vein Open Sodium Chloride (Normal Saline) 10 ml IV ASDIRECTED PRN PRN Reason: IV Use Sterile Water (Sterile Water For Irrigation) 1,000 ml IRR ASDIRECTED PRN PRN Reason: delivery Terbutaline Sulfate (Brethine) 0.25 mg SUBCUT ASDIRECTED PRN PRN Reason: Tacysystole - Exam General: Reports: Alert, Oriented Lungs: Reports: Normal Respiratory Effort GI/Abdominal Exam: Non-Tender Extremities: Normal Inspection Psy/Mental Status: Reports: Alert, Normal Affect, Normal Mood
== END 2020-03-20 15:08 | disposition home or self-care (01) | DRG 807 ==
LOC: MW.OBCHECK 00:10 → MW.OB 00:11 → MW.OBCHECK 01:06 → OBSVTOIN 03-18 19:05 → MW.OB 03-18 23:47
PROVIDERS: ADMIT Obstetrics & Gynecology; ATTEND Obstetrics & Gynecology Obstetrics
PROC: 10E0XZZ Delivery of Products of Conception, External Approach (ICD-10-PCS; principal; 2020-03-18)
PROC: 3E0P7VZ Introduction of Hormone into Female Reproductive, Via Natural or Artificial Opening (ICD-10-PCS; 2020-03-18)
PROC: 3E0R3BZ Introduction of Anesthetic Agent into Spinal Canal, Percutaneous Approach (ICD-10-PCS; 2020-03-18)
PROC: 0HQ9XZZ Repair Perineum Skin, External Approach (ICD-10-PCS; 2020-03-18)
PROC: 10H07YZ Insertion of Other Device into Products of Conception, Via Natural or Artificial Opening (ICD-10-PCS; 2020-03-18)
DX: O48.0 Post-term pregnancy (principal); Z37.0 Single live birth; Z3A.41 41 weeks gestation of pregnancy; O76 Abnormality in fetal heart rate and rhythm complicating labor and delivery; O69.81X0 Labor and delivery complicated by cord around neck, without compression, not applicable or unspecified; O70.0 First degree perineal laceration during delivery
CPT/HCPCS: 01967; 36415; 59025; 59409; 84112; 85014; 85018; 85027; 86592; 86850; 86900; 86901; A9270-GY; J0595; J2210; J2590; J2795; J3010; J7120